=== PATIENT | female | born 1985 | race Caucasian/White ===

== ENCOUNTER 2017-04-14 20:27 | Emergency (ER) | payer SELFPAY ==
--- NOTE | ~2017-04-14 | CR63 ---
[facility]. [facility] A Service of [facility] & [facility] RADIOLOGY TEXT RESULTS PATIENT: NASH SIMMONS LOCATION: SED : 83 UNIT #: [id number] AGE: [address]: STEPHANY KAISER SEX: F ORDER DR: [id number] [place] [id number] E MR#: [id number] Acc #: [id number] NAME: NASH SIMMONS : 1985 SEX: F STUDY DATE/TIME: 04/14/2017 22:40 UNIT: SED ROOM: STUDY DESCRIPTION: CR Chest 2 View Attending Physician: Stephany aKiser Aprn Ordering Physician: Stephany Kaiser Aprn Primary Care Physician: No Primary Care Physician MEDICAL IMAGING REPORT This report is preliminary unless electronic signature is present. EXAM Chest x-ray, 04/14. INDICATION Left-sided rib pain after a fall yesterday. FINDINGS Two views of the chest were obtained. No comparison. Cardiac and mediastinal contours are normal. The lungs are clear. No pneumothorax. Blunting of the right costophrenic angle may reflect a trace amount of right pleural fluid or pleural scarring. No fractures are identified. IMPRESSION Trace right pleural fluid or pleural scarring. Otherwise, negative chest. Dictated by... Jann Cannon Jr., M.D. THIS IS AN ELECTRONICALLY VERIFIED REPORT Jann Cannon Jr., M.D. at 04/15/2017 10:06 AM KITA/liliana TD: 04/15/2017 09:28 JOB #: [id number] MEDICAL IMAGING REPORT Page 1 of 1
== END 2017-04-15 00:17 | disposition home or self-care (01) ==
LOC: SED 20:27
DX: S20.212A Contusion of left front wall of thorax, initial encounter (principal); F17.210 Nicotine dependence, cigarettes, uncomplicated; Z98.51 Tubal ligation status; W10.9XXA Fall (on) (from) unspecified stairs and steps, initial encounter; Y93.89 Activity, other specified
CPT/HCPCS: 71020; 99283